=== PATIENT | male | born 1950 | race Caucasian/White ===

== ENCOUNTER 2019-10-11 13:12 | Emergency (ER) | payer OTHER ==
[2019-10-11 13:21] VITALS: PULSE 70; TEMP 97.8; BMI 36.0
[2019-10-11] MEDS ORDERED: SODIUM CHLORIDE 1,000 ML IV STA (13:49)
[2019-10-11] MEDS ORDERED: ACETAMINOPHEN 1000 MG/100 ML VIAL (NON FORMULARY) IVPB ONE (13:49)
--- NOTE | 2019-10-11 14:05 | PDOC ---
History of Present Illness - General Chief Complaint: Pain Stated Complaint: HEADACHE/LT SIDE RIB PAIN Time Seen by Provider: 10/11/19 13:50 History Source: Patient Exam Limitations: No Limitations - History of Present Illness Initial Comments: 10/11/19 13:59 68-year-old male with history of hypertension, high cholesterol, BPH, and chronic low back pain presents to the ED with complaints of headache which she describes as pressure to his forehead and front of his head for the past 3 weeks now associated with intermittent dizziness for the past week and this morning while sitting had felt as if he was going to pass out. Patient denied any chest pain, shortness of breath but states has had a nonproductive intermittent cough for the past 5 days. Patient states also has urinary frequency for the past 5 days and unsure if it due to his prostate still has moving up on his prostate medication. Patient state has history of frequent sinus infections and had had sinus surgery numerous years ago for similar presentation. Patient denies fever, chills, visual changes, nausea, chest pain , shortness of breath, but also does state left upper quadrant cramping discomfort without any bowel complaints or GI history. Associated Symptoms: reports: cough, headaches, other Past History - Travel Traveled outside of the country in the last 30 days: No Close contact w/someone who was outside of country & ill: No - Past Medical History Allergies/Adverse Reactions: Allergies Allergy/AdvReac Type Severity Reaction Status Date / Time No Known Allergies Allergy Verified 10/11/19 13:20 Home Medications: Ambulatory Orders Atorvastatin Ca [Lipitor] 80 mg PO HS 05/16/14 Chlorthalidone 25 mg PO BID 05/16/14 Etodolac 400 mg PO BID 05/16/14 Gabapentin 900 mg PO DAILY 05/16/14 Omeprazole [Prilosec] 20 mg PO DAILY 05/16/14 Magnesium Oxide [Mag-Ox -] 400 mg PO BID #6 tablet 05/17/14 Clopidogrel Bisulfate [Plavix -] 75 mg PO DAILY #30 tablet 05/18/14 Nitroglycerin Sublingual [Nitrostat -] 0.4 mg SL Q5M PRN #30 tab 05/18/14 COPD: No HTN: Yes - Psycho Social/Smoking Cessation Hx Smoking History: Never smoked Have you smoked in the past 12 months: Yes Number of Cigarettes Smoked Daily: 3 Cigars Per Day: 2 'Breaking Loose' booklet given: 05/17/14 Hx Alcohol Use: Yes Substance Use Type: None Hx Substance Use Treatment: No Patient Lives Alone: No Lives with/in: spouse/SO Review of Systems - Review of Systems Able to Perform ROS?: Yes Constitutional: No: Symptoms Reported HEENTM: No: Symptoms Reported Respiratory: Yes: Cough Cardiac (ROS): Yes: Lightheadedness ABD/GI: Yes: Abdominal cramping : Yes: Frequency Integumentary: No: Symptoms Reported Neurological: Yes: Headache, Dizziness Endocrine: Yes: Symptoms Reported Hematologic/Lymphatic: No: Symptoms Reported *Physical Exam - Vital Signs Last Vital Signs Temp Pulse Resp BP Pulse Ox 97.8 F 70 18 98/57 L 96 10/11/19 13:17 10/11/19 13:17 10/11/19 13:17 10/11/19 13:17 10/11/19 13:17 - Physical Exam General Appearance: Yes: Nourished, Appropriately Dressed. No: Apparent Distress HEENT: positive: EOMI, AMY, TMs Normal, Pharynx Normal. negative: Pale Conjunctivae Neck: positive: Supple Respiratory/Chest: positive: Lungs Clear (Coarse to left base), Normal Breath Sounds. negative: Respiratory Distress, Accessory Muscle Use Cardiovascular: positive: Regular Rhythm, Regular Rate. negative: Murmur Gastrointestinal/Abdominal: positive: Normal Bowel Sounds, Soft, Distended ( Rotund). negative: Guarding, Rebound, Tenderness, Hernia Musculoskeletal: negative: CVA Tenderness Integumentary: positive: Normal Color, Warm, Moist Neurologic: positive: Motor Strength 5/5 (Ambulatory) Heart Score/ECG Review - ECG Intrepretation Rhythm: Regular Rhythm (Normal sinus rhythm at 68, no ST elevation depression or prolonged QT) ED Treatment Course - LABORATORY CBC & Chemistry Diagram: 10/11/19 15:35 10/11/19 15:35 - RADIOLOGY Radiology Studies Ordered: Category Date Time Status HEAD CT WITHOUT CONTRAST [CT] Stat CT Scan 10/11/19 13:49 Ordered CHEST PA & LAT [RAD] Stat Radiology 10/11/19 13:55 Ordered Medical Decision Making - Medical Decision Making 10/11/19 14:03 Chief complaint: Patient with headache for the past 2 weeks associated intermittent dizziness and this a.m. felt dizzy as if he was going to faint while sitting in the chair patient also complained of urinary frequency along with cough and, left upper quadrant cramping for the past few days patient is followed at the [facility] and has not seen his PCP in the last 5 months for evaluation or had any recent change in medication dosing. Exam: Patient with no reproducible abdominal pain, mild coarse breath sounds to left base EKG normal sinus rhythm Plan: EKG, chest x-ray, head CT, labs, urine IV fluids and IV Tylenol ordered 10/11/19 14:42 Pt requesting to lay down secondary to headache.Pts bp borderline low. Patient placed in my room on stretcher awaiting iv access , labs, and meds Discharge - Discharge Information Problems reviewed: Yes Clinical Impression/Diagnosis: Dizziness Abdominal pain Qualifiers: Abdominal location: left lower quadrant Qualified Code(s): R10.32 - Left lower quadrant pain Headache Qualifiers: Headache type: unspecified Headache chronicity pattern: unspecified pattern Intractability: not intractable Qualified Code(s): R51 - Headache Condition: Stable Disposition: HOME - Follow up/Referral - Patient Discharge Instructions Patient Printed Discharge Instructions: DI for Sinus Headache, DI for Abdominal Pain-Adult Additional Instructions: Your Discharge Instructions: You must call primary care physician within 24 hours to arrange follow-up. Return to the Emergency Department with any new, persistent or worsening symptoms, for fever, chills, SOB, dizziness or any other concerning changes that may occur. You must follow-up with your primary care doctor for referral to renal to have your kidneys checked out. You must also follow-up with ENT about your sinus issues. - Post Discharge Activity
[2019-10-11] MEDS ORDERED: ACETAMINOPHEN INJECTION 100 ML IVPB ONE (15:14)
[2019-10-11 15:51] LABS: BASO % 0.4 % (0-2.0); EOS % 0.6 % (0-4.5); HEMATOCRIT 36.4 % (35.4-49); HEMOGLOBIN 12.6 GM/dL (11.7-16.9); LYMPH % 15.7 % (8-40); MCH 29.4 pg (25.7-33.7); MCHC 34.6 g/dl (32.0-35.9); MEAN CELL VOLUME 84.9 fl (80-96); MONO % 6.2 % (3.8-10.2); NEUT % 77.1 % (42.8-82.8); PLATELET COUNT 189 K/MM3 (134-434); RBC 4.28 M/mm3 (4.00-5.60); RDW 14.5 % (11.9-15.9); WHITE BLOOD COUNT 9.5 K/mm3 (4.0-10.0)
[2019-10-11 15:52] LABS: PH,URINE 5.5 (5.0-8.0); URINE APPEARANCE CLEAR; URINE BILIRUBIN NEGATIVE (NEGATIVE); URINE COLOR YELLOW; URINE GLUCOSE (UA) NEGATIVE (NEGATIVE); URINE KETONE NEGATIVE (NEGATIVE); URINE LEUK ESTERASE NEGATIVE (NEGATIVE); URINE NITRITE NEGATIVE (NEGATIVE); URINE PROTEIN NEGATIVE (NEGATIVE); URINE UROBILINOGEN 0.2 mg/dL (0.2-1.0)
[2019-10-11 16:22] LABS: ALBUMIN 3.7 g/dl (3.4-5.0); ALK PHOS 68 U/L (45-117); ANION GAP 8 MMOL/L (8-16); BILIRUBIN,TOTAL 0.5 mg/dL (0.2-1); BLOOD UREA NITROGEN 29.3 mg/dL (7-18); CALCIUM 8.7 mg/dL (8.5-10.1); CHLORIDE 105 mmol/L (98-107); CO2 25 mmol/L (21-32); CREATININE 1.5 mg/dL (0.55-1.3); POTASSIUM 3.6 mmol/L (3.5-5.1); SGOT/AST 25 U/L (15-37); SODIUM 138 mmol/L (136-145)
[2019-10-11 16:45] LABS: GLUCOSE,RANDOM 108 mg/dL (74-106); SGPT/ALT 34 U/L (13-61); TOT PROT 6.8 g/dl (6.4-8.2)
--- NOTE | 2019-10-11 19:14 | PDOC ---
*Physical Exam - Vital Signs Last Vital Signs Temp Pulse Resp BP Pulse Ox 97.8 F 70 18 98/57 L 96 10/11/19 13:17 10/11/19 13:17 10/11/19 13:17 10/11/19 13:17 10/11/19 13:17 ED Treatment Course - LABORATORY CBC & Chemistry Diagram: 10/11/19 15:35 10/11/19 15:35 - ADDITIONAL ORDERS Additional order review: Laboratory Results 10/11/19 10/11/19 15:35 15:35 Sodium 138 Potassium 3.6 Chloride 105 Carbon Dioxide 25 Anion Gap 8 BUN 29.3 H Creatinine 1.5 H Est GFR (CKD-EPI)AfAm 53.89 Est GFR (CKD-EPI)NonAf 46.50 Random Glucose 108 H Calcium 8.7 Total Bilirubin 0.5 AST 25 ALT 34 Alkaline Phosphatase 68 Creatine Kinase 299 Creatine Kinase Index 2.2 CK-MB (CK-2) 6.7 H Troponin I < 0.02 Total Protein 6.8 Albumin 3.7 Urine Color Yellow Urine Appearance Clear Urine pH 5.5 Ur Specific [place] 1.012 Urine Protein Negative Urine Glucose (UA) Negative Urine Ketones Negative Urine Blood Negative Urine Nitrite Negative Urine Bilirubin Negative Urine Urobilinogen 0.2 Ur Leukocyte Esterase Negative 10/11/19 15:35 RBC 4.28 MCV 84.9 MCHC 34.6 RDW 14.5 MPV 9.0 Neutrophils % 77.1 Lymphocytes % 15.7 Monocytes % 6.2 Eosinophils % 0.6 Basophils % 0.4 - RADIOLOGY Radiology Studies Ordered: Category Date Time Status ABDOMEN & PELVIS CT W/O CONTR [CT] Stat CT Scan 10/11/19 18:15 Taken - Medications Given in the ED: ED Medications Discontinued Medications Generic Name Dose Route Start Last Admin Trade Name Freq PRN Reason Stop Dose Admin Acetaminophen 1,000 mg 10/11/19 13:49 10/11/19 15:10 Ofirmev Injection - IVPB 10/11/19 13:50 1,000 mg ONCE ONE Administration Sodium Chloride 1,000 mls @ 1,000 mls/hr 10/11/19 13:49 10/11/19 15:10 Normal Saline - IV 10/11/19 14:48 1,000 mls/hr ASDIR STA Administration Medical Decision Making - Medical Decision Making Found patient in the vertical examining room, laying on the bed. Patient seen and examined. He is complaining of abdominal pain and headache. Abdomen: Mildly tender in the left lower quadrant Patient was pending a CAT scan of his head Sent for CT of the abdomen pelvis 10/11/19 19:13 Patient Full Name: GARETH PETERSEN Patient Accession No: [id number] Patient : 1950 Reason for Exam: LLQ ABD PAIN Referring Physician: Patient Name: NICOLA SERVIN PRELIMINARY REPORT FROM [facility] EXAM: CT abdomen pelvis without contrast DATE: 2019-10-11 18:13:23 IMAGES: 525 HISTORY: LLQ pain IMPRESSION: No obstruction or diverticulitis seen. Mild prominent renal collecting systems. No definite obstructing calculus seen. Cannot exclude urinary tract infection. Otherwise, no acute process seen. One or more of the following dose reduction techniques were used: automated exposure control, adjustment of the mA and/or kV according to patient size, use of iterative reconstructive technique. THIS DOCUMENT HAS BEEN ELECTRONICALLY SIGNED Tobias Copeland MD 10/11/2019 18:54 TONY Wan. Please call Imaging Relationship Consultant [phone] with questions. INTERPRETING RADIOLOGIST: Tobias Copeland MD Electronically Signed: Oct 11, 2019 06:56PM EST Patient Full Name: GARETH PETERSEN Patient Accession No: [id number] Patient : 1950 Reason for Exam: MÁRQUEZ Referring Physician: FARHEEN PAYNE Patient Name: NICOLA SERVIN THIS IS A PRELIMINARY REPORT FROM [facility]PER[facility] EXAM: CT Head wo IMAGES: 236 EXAM DATE AND TIME: 2019-10-11 17:42:55 HISTORY: 68 year old man: Headache. COMPARISON: None TECHNIQUE: Non-contrast axial images were obtained. Coronal and sagittal images were also generated. FINDINGS: The cerebral sulci and ventricles are normal in size. There are no intracranial hemorrhages, extra-axial fluid collections or evidence of an intra- axial mass lesion. There is no evidence of an acute or chronic ischemic lesion at this time. Orbital and petrous structures, cerebellopontine angles, and posterior fossa appear unremarkable. There is complete opacification of the left maxillary sinus. The remaining paranasal and mastoid sinuses are clear. The patient has undergone functional endoscopic sinus surgery in the past with excision of the right ostiomeatal complex. IMPRESSION: Left maxillary sinusitis. The study is otherwise unremarkable. No intracranial hemorrhages, extra-axial fluid collections or intra-axial mass lesion. . One or more of the following dose reduction techniques were used: automated exposure control, adjustment of the mA and/or kV according to patient size, use of iterative reconstructive technique. THIS DOCUMENT HAS BEEN ELECTRONICALLY SIGNED Sebastien Mon MD. 10/11/2019 19:06 TONY Morris Please call Imaging Relationship Consultant [phone] with questions. INTERPRETING RADIOLOGIST: Sebastien Mon MD Electronically Signed: Oct 11, 2019 07:06PM EST 10/11/19 20:[address] scan with the patient he still complains of left lower quadrant abdominal pain. Will be given tramadol 50 mg p.o. Discussed with patient findings of fullness of his renal system. He will follow -up with his primary care doctor for referral to renal. I discussed the physical exam findings, ancillary test results and final diagnoses with the patient. I answered all of the patient's questions. The patient was satisfied with the care received and felt comfortable with the discharge plan and treatment plan. The Patient agrees to follow up with the primary care physician within 24-72 hours. Discharge - Discharge Information Problems reviewed: Yes Clinical Impression/Diagnosis: Dizziness Abdominal pain Qualifiers: Abdominal location: left lower quadrant Qualified Code(s): R10.32 - Left lower quadrant pain Headache Qualifiers: Headache type: unspecified Headache chronicity pattern: unspecified pattern Intractability: not intractable Qualified Code(s): R51 - Headache Condition: Stable Disposition: HOME - Follow up/Referral - Patient Discharge Instructions Patient Printed Discharge Instructions: DI for Sinus Headache, DI for Abdominal Pain-Adult Additional Instructions: Your Discharge Instructions: You must call primary care physician within 24 hours to arrange follow-up. Return to the Emergency Department with any new, persistent or worsening symptoms, for fever, chills, SOB, dizziness or any other concerning changes that may occur. You must follow-up with your primary care doctor for referral to renal to have your kidneys checked out. You must also follow-up with ENT about your sinus issues. - Post Discharge Activity
[2019-10-11] MEDS ORDERED: traMADol HCL 50 MG TABLET PO ONE (20:03)
[2019-10-11] MEDS ORDERED: traMADol HCL 50 MG TABLET ONE (20:46)
[2019-10-11 20:50] VITALS: BP 106/68
--- NOTE | 2019-10-12 14:49 | EKG ---
Test Reason : Blood Pressure : / mmHG Vent. Rate : 068 BPM Atrial Rate : 068 BPM P-R Int : 204 ms QRS Dur : 098 ms QT Int : 400 ms P-R-T Axes : 059 044 048 degrees QTc Int : 425 ms NORMAL SINUS RHYTHM NORMAL ECG WHEN COMPARED WITH ECG OF 11-APR-2014 00:26, T WAVE VARIATION Confirmed by RAÚL MOURA MD ([id number]) on 10/12/2019 2:48:57 PM Referred By: Confirmed By:RAÚL MOURA MD
== END 2019-10-11 20:51 | disposition home or self-care (01) ==
LOC: JER 13:12
PROC: 3E0337Z Introduction of Electrolytic and Water Balance Substance into Peripheral Vein, Percutaneous Approach (ICD-10-PCS; principal; 2019-10-11)
DX: R10.32 Left lower quadrant pain (principal); R51 Headache; R42 Dizziness and giddiness
CPT/HCPCS: 36415; 70450-TC; 71046-TC-FY; 74176-TC; 80053; 81003; 82550; 82553; 84484; 85025; 87086; 93005; 93010; 99282-25; J0131; J7030

== ENCOUNTER 2024-10-20 18:20 | Emergency (ER) | payer OTHER ==
[2024-10-20 18:56] VITALS: TEMP 97.5; BMI 25.0
[2024-10-20] MEDS ORDERED: HALOPERIDOL LACTATE 5 MG/ML ONE (19:12)
[2024-10-20] MEDS ORDERED: LORazepam 2 MG/ML SDV VIAL ONE ×2 (19:12→20:27)
[2024-10-20] MEDS: HALOPERIDOL LACTATE 5 MG/ML IM ONE (19:32)
[2024-10-21 04:43] VITALS: BP 145/83; PULSE 58; RESP 18
== END 2024-10-21 05:04 | disposition home or self-care (01) ==
LOC: JER 18:20
PROC: 3E023GC Introduction of Other Therapeutic Substance into Muscle, Percutaneous Approach (ICD-10-PCS; principal; 2024-10-20)
PROC: 3E023GC Introduction of Other Therapeutic Substance into Muscle, Percutaneous Approach (ICD-10-PCS; 2024-10-20)
DX: S00.03XA Contusion of scalp, initial encounter (principal); R47.81 Slurred speech; R26.81 Unsteadiness on feet; W19.XXXA Unspecified fall, initial encounter
CPT/HCPCS: 70450-TC; 72125-TC; 93005; 93010; 99284-25